=== PATIENT | male | born 1995 | race Caucasian/White ===

== ENCOUNTER → 2022-07-31 | Outpatient (CLI) | payer OTHER ==
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
== END | disposition home or self-care (01) ==
LOC: RADXRMAIN 16:57
PROVIDERS: ATTEND Emergency Medicine
DX: S93.402A Sprain of unspecified ligament of left ankle, initial encounter (principal)

== ENCOUNTER → 2022-11-01 | Outpatient (CLI) | payer OTHER ==
--- NOTE | 2022-11-03 20:59 | MR ---
EXAMINATION TYPE: MR brain/cspine wo DATE OF EXAM: 11/01/2022 COMPARISON: None HISTORY: Headaches, Migraines, Pain in neck into left shoulder CONTRAST: Performed utilizing 0 mL intravenous Gadavist gadolinium contrast. TECHNIQUE: Multiplanar, multiecho imaging on a 3.0 Emilie magnet is performed through the brain. Stud y is performed within 24 hours of arrival to the hospital. The craniovertebral junction is normal. The pituitary is normal. Optic chiasm is normal Diffusion-weighted imaging is performed. No abnormal hyperintensity is present to suggest an acute i ntracranial infarct or acute ischemic change. There are scattered punctate areas of hyperintensity on T2 and Inversion Recovery weighted sequences which are non-specific but can be related to microvascular ischemic changes. Ventricles and sulci are appropriate for the patient age. Mucosal thickening is through the right maxillary sinus. There is opacification of the frontal sinuse s and ethmoid air cells. Some sphenoid sinus mucosal thickening is present. IMPRESSIONS: 1. No acute intracranial process. 2. Clinical correlation recommended for chronic sinusitis EXAMINATION TYPE: MR brain/cspine wo DATE OF EXAM: 11/01/2022 COMPARISON: None HISTORY: Headaches, Migraines, Pain in neck into left shoulder CONTRAST: Performed utilizing mL intravenous gadolinium contrast. TECHNIQUE: Multiplanar multiecho imaging on a 3.0 Emilie magnet is performed through the cervical spin e. FINDINGS: The craniovertebral junction is normal. Vertebral body alignment is normal. C7-T1: No focal disc herniation or significant disc bulge is evident. No spinal canal stenosis or n eural foraminal stenosis is present. C6-7: Minimal central disc bulge is present with anterior thecal sac contact. No spinal canal stenosi s evident. No cord contact is evident. Neural foramen are patent. C5-6: There is moderate size right central protrusion with moderate anterior thecal sac impression. T his is in close approximation with the spinal cord. Spinal canal stenosis is present and 0.9 cm. Unco vertebral joint hypertrophy is present on the left with moderate stenosis. C4-5: Minimal anterior thecal sac compression from central protrusion is present. No spinal canal mami nosis or cord contact or neural foraminal stenosis is present. C3-4: No focal disc herniation or significant disc bulge is evident. No spinal canal stenosis or zuleyma ral foraminal stenosis is present. C2-3: No focal disc herniation or significant disc bulge is evident. No spinal canal stenosis or zuleyma ral foraminal stenosis is present. IMPRESSIONS: 1. Moderate sized central disc C5-6 protrusion in close approximation of the spinal cord. 2. C4-5 C6-7 minimal central disc bulge with anterior thecal sac compression
== END | disposition home or self-care (01) ==
LOC: RADMRIMAIN 18:29
PROVIDERS: ATTEND Emergency Medicine
DX: S13.4XXD Sprain of ligaments of cervical spine, subsequent encounter (principal); S43.402D Unspecified sprain of left shoulder joint, subsequent encounter; M50.321 Other cervical disc degeneration at C4-C5 level; M54.6 Pain in thoracic spine; S33.5XXD Sprain of ligaments of lumbar spine, subsequent encounter; R20.9 Unspecified disturbances of skin sensation; S93.402D Sprain of unspecified ligament of left ankle, subsequent encounter; M25.552 Pain in left hip; F41.9 Anxiety disorder, unspecified; G44.319 Acute post-traumatic headache, not intractable
CPT/HCPCS: 70551; 72141